=== PATIENT | female | born 1990 | race African-American/Black ===

== ENCOUNTER 2022-07-19 13:17 | Emergency (ER) | payer MEDICAID ==
[2022-07-19 14:33] LABS: CORONAVIRUS COVID-19 NAA NEGATIVE (NEGATIVE); INFLUENZA A NAA NEGATIVE (NEGATIVE); INFLUENZA B NAA NEGATIVE (NEGATIVE); RESPIRATORY SYNCYTIAL VIR NAA NEGATIVE (NEGATIVE)
== END 2022-07-19 14:44 | disposition home or self-care (01) ==
LOC: MW.ED 13:17
DX: J01.10 Acute frontal sinusitis, unspecified (principal); Z20.822 Contact with and (suspected) exposure to COVID-19
CPT/HCPCS: 0241U; 99284